=== PATIENT | female | born 1965 | race Caucasian/White ===

== ENCOUNTER → 2019-09-01 | Outpatient (CLI) | payer OTHER ==
[~2019-09-01] MED LIST: CHOL100029 PO; CVS1CAP2 PO; DECA4TAB PO; DIFL150T PO; LIDO2.5C15 TOP; OMEP-218 PO; SIME40TA PO; XARE15TA PO; [UNRECOGNIZED DRUG - CODE] SQ
--- NOTE | 2019-09-04 13:43 | RADONC ---
RADIATION ONCOLOGY CONSULTATION NOTE DATE: 09/01/2019 CHART #: [id number] DIAGNOSIS: Left breast cancer. STAGE: I A, pT1c, pN1a, grade 3, ER positive, IN positive, HER2/evelyn positive. ECOG PERFORMANCE STATUS: 0. CONSULTATION NOTE: Ms. 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 HISTORY OF PRESENT ILLNESS: The patient was in her usual state of health and until routine mammogram was done on 04/04/2019 and revealed a hyperechoic mass in the left breast at the 2:30 position measuring 1.2 cm. On 04/26/2019, the patient underwent lumpectomy and sentinel lymph node biopsy. Pathology revealed a 1.8 cm poorly differentiated invasive ductal carcinoma. 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 The invasive carcinoma extended to within 0.5 mm of the superficial margin and the ductal carcinoma in situ was 1 mm from the superficial margin as well. One sentinel lymph node was sampled and measured 12 mm in greatest dimension. It was involved with metastatic cancer. A second lymph node was sampled, but no lymph node was identified and only adipose tissue was seen. Therefore, one out of one sentinel lymph nodes were positive for malignancy. The tumor was noted to be estrogen receptor positive, progesterone receptor positive and HER2 positive as well. The patient was subsequently seen by medical oncology with Dr. Ayana Prasad and underwent chemotherapy consisting of Taxotere and cyclophosphamide. Her last chemotherapy was just approximately 2 weeks ago. She is scheduled to begin Herceptin. The patient to will be going to [facility] in [place] from through the end of the first week of September and wishes to begin her radiation following that on September 25. PAST MEDICAL HISTORY: The patient's past medical history is positive for a DVT. She had varicose vein surgery and a . ALLERGIES: The patient has NO KNOWN DRUG ALLERGIES. SOCIAL HISTORY: The patient does not smoke cigarettes. She drinks alcohol socially. FAMILY HISTORY: The patient's family history is positive for a sister with breast cancer and a father with lymphoma. REVIEW OF SYSTEMS: The patient's review of systems is positive for some shortness of breath especially when walking up stairs which gives her physical limitations. It is otherwise noncontributory. Denies nausea, vomiting, fevers, chills, night sweats, diplopia, headaches, anxiety or depression, anorexia, weight loss, visual disturbances, chest pain, urinary or bowel difficulties, bone pain, or neurological problems. PHYSICAL EXAMINATION: The patient is a well-developed, well-nourished female in no acute distress. HEENT exam is normocephalic, atraumatic. Extraocular movements are intact. There is no palpable cervical, supraclavicular, infraclavicular, axillary, or inguinal lymphadenopathy present. Lungs are clear to auscultation and percussion. Heart has a regular rate and rhythm. Abdomen is benign with no hepatosplenomegaly, masses, or tenderness. Breast examination reveals no masses or discharge bilaterally. Skeletal examination reveals no tenderness to pressure or percussion of the bony skeleton. Extremities reveal no clubbing, cyanosis, or edema. Neurologic exam is grossly intact, as is the remainder of the physical examination. ASSESSMENT: Clearly, the patient is a candidate for external beam radiation therapy and I have so informed her. I have discussed with the patient in detail the potential benefits as well as possible acute and chronic sequelae of external beam radiation therapy. We discussed logistics of treatment planning, simulation and subsequent fractionated daily radiation treatments. The patient is anxious to start treatment, but apparently has reserved a trip to [place] for the week following . I therefore discussed with her starting on September 25, the Wednesday following her return. It does not make sense to start her on the Wednesday before and give her three treatments followed by two days off that week and the entire next week off. I do not see that this short delay will impact her overall local control rate and I have not recommended that she cancel this vacation for such a short delay. We therefore will be planning on initiating simulation and treatment planning prior to and therefore we should be able to start her without delay when she returns. Thank you for allowing us to participate in the care of this very pleasant woman. cc: MD Amy Fuentes MD Catherine Williams, MD
== END ==
LOC: M ONCR 08:51
PROVIDERS: ATTEND Radiology Radiation Oncology
DX: C50.912 Malignant neoplasm of unspecified site of left female breast (principal); Z92.21 Personal history of antineoplastic chemotherapy; Z86.718 Personal history of other venous thrombosis and embolism

== ENCOUNTER 2019-09-13 12:15 | Outpatient (RCR) | payer OTHER ==
--- NOTE | 2019-09-11 11:20 | RADONC ---
RADIATION ONCOLOGY SIMULATION NOTE DATE OF SERVICE: 09/07/2019 CHART NUMBER: [id number] Ms. Grubbs was taken to the CT scan for CT simulation of her left breast and supraclavicular colbert. CT was accomplished without difficulty or discomfort. Radiation treatment planning is underway and radiation treatments will begin subsequently. An immobilization device was created and will be used throughout the course of treatment. It was created without difficulty or discomfort. I was physically present at the course of CT simulation.
[~2019-09-13 12:15] MED LIST changes: +XARE20TA PO
[2019-09-13] MEDS ORDERED: LETR2.5T2 PO (13:14)
== END 2019-09-16 ==
LOC: M ONCR 12:15
PROVIDERS: ATTEND Radiology Radiation Oncology
DX: C50.412 Malignant neoplasm of upper-outer quadrant of left female breast (principal)

== ENCOUNTER → 2019-10-17 | Outpatient (RCR) | payer OTHER ==
--- NOTE | 2019-09-25 13:56 | RADONC ---
RADIATION ONCOLOGY PROGRESS NOTE DATE: 09/25/2019 CHART NUMBER: [id number] PROGRESS NOTE: Ms. Grubbs was taken to the linear accelerator today and underwent her first fraction of radiation today to her left breast. Radiation was tolerated without difficulty or discomfort. REVIEW OF SYSTEMS: The patient's review of systems is noncontributory. Denies nausea, vomiting, fevers, chills, night sweats, diplopia, headaches, anxiety or depression, anorexia, weight loss, visual disturbances, chest pain, urinary or bowel difficulties, bone pain, or neurological problems. PHYSICAL EXAMINATION: The patient's skin clearly showed no evidence of radiation change present since this was her first fraction. The remainder of her physical exam remained unchanged as well. Ms. Grubbs tolerated treatments quite well and radiation will continue as scheduled.
--- NOTE | 2019-10-04 06:23 | RADONC ---
RADIATION ONCOLOGY PROGRESS NOTE DATE: 10/02/2019 CHART #: [id number] Ms. Grubbs is presently at a dose of 1080 cGy to her left breast and is tolerating treatments quite well at this point with no complaints related to her radiation therapy. She is having no skin or breast pain. She has no bone pain. REVIEW OF SYSTEMS: The patient's review of systems is noncontributory. Denies nausea, vomiting, fevers, chills, night sweats, diplopia, headaches, anxiety or depression, anorexia, weight loss, visual disturbances, chest pain, urinary or bowel difficulties, bone pain, or neurological problems. PHYSICAL EXAMINATION: The patient's skin is in good condition with no evidence of radiation change present. There is no moist or dry desquamation. The remainder of her physical exam remains unchanged. Ms. Grubbs is tolerating treatments quite well and radiation will continue as scheduled.
--- NOTE | 2019-10-13 08:04 | RADONC ---
RADIATION ONCOLOGY PROGRESS NOTE DATE: 10/09/2019 Mrs. Grubbs with a diagnosis of breast cancer is currently receiving local regional radiotherapy and she has achieved a dose thus far of 1800 cGy to the left breast. The treatments thus far have been quite well tolerated as she denies any nausea, vomiting, coughing, sputum production, difficulty breathing or hemoptysis. Her energy level is diminished, but she is still able to maintain most day-to-day activities without any alteration of her lifestyle. She denies skin irritation. EXAMINATION FINDINGS: The skin within the irradiated volume shows neither erythema nor evidence of desquamation. Lymphatics: There is no palpable peripheral lymphadenopathy appreciated. The remainder of the physical examination is unchanged. IMPRESSION: Tolerating radiotherapy well. PLAN: Treatments to continue.
[~2019-10-17] MED LIST changes: +LETR2.5T2 PO
--- NOTE | 2019-10-17 13:33 | RADONC ---
RADIATION ONCOLOGY PROGRESS NOTE DATE OF SERVICE: 10/16/2019 CHART NUMBER: [id number] Mrs. Grubbs, with a diagnosis of carcinoma of the left breast located upper outer quadrant staged [id number], grade 3, HER2/evelyn positive, is currently undergoing local regional radiotherapy, and she has achieved a dose thus far of 2340 cGy of an anticipated 4860 cGy to be followed by a 1200 cGy boost. She is tolerating her radiotherapy well, denying any nausea, vomiting, coughing, sputum production hemoptysis or other skin irritation. Her energy level is diminished but she is still able to maintain most day-to-day activities without any alteration of her lifestyle. Skin irritation is denied. EXAMINATION FINDINGS: The skin within the irradiated volume shows neither erythema nor desquamation. Lymphatics: There is no palpable peripheral lymphadenopathy appreciated. The remainder of the physical examination is unchanged. IMPRESSION: Tolerating therapy well. PLAN: Treatments to continue.
== END ==
LOC: M ONCR 09-25 12:51
PROVIDERS: ATTEND Radiology Radiation Oncology
DX: C50.412 Malignant neoplasm of upper-outer quadrant of left female breast (principal)

== ENCOUNTER 2019-11-14 08:38 | Outpatient (RCR) | payer OTHER ==
--- NOTE | 2019-10-24 07:01 | RADONC ---
RADIATION ONCOLOGY PROGRESS NOTE DATE: 10/23/2019 CHART #: [id number] Ms. Grubbs is presently at a dose of 3060 cGy to her left breast and is tolerating treatments quite well at this point with no complaints related to her radiation therapy. She is having no breast or bone pain. REVIEW OF SYSTEMS: The patient's review of systems is noncontributory. Denies nausea, vomiting, fevers, chills, night sweats, diplopia, headaches, anxiety or depression, anorexia, weight loss, visual disturbances, chest pain, urinary or bowel difficulties, bone pain, or neurological problems. PHYSICAL EXAMINATION: The patient's skin is in good condition with no evidence of radiation change present. There is no moist with no evidence of moist make that or dry desquamation. There is some erythema present. The remainder of physical exam remains unchanged. Ms. Grubbs is tolerating treatments quite well and radiation will continue as scheduled.
--- NOTE | 2019-10-31 08:24 | RADONC ---
RADIATION ONCOLOGY SIMULATION NOTE: DATE: 10/30/2019 CHART NUMBER: [id number] Ms. Grubbs was taken to the linear accelerator today for clinical setup of her electron beam boost field. Setup was accomplished without difficulty or discomfort. Radiation treatment planning is underway and radiation treatments will begin subsequently. An immobilization device was treated without difficulty or discomfort. It will be used throughout the course of treatment. I was physically present throughout the course of clinical setup simulation.
--- NOTE | 2019-10-31 08:47 | RADONC ---
RADIATION ONCOLOGY PROGRESS NOTE: DATE: 10/30/2019 CHART NUMBER: [id number] Ms. Grubbs is presently at a dose of 3960 cGy to her left breast and is tolerating treatments quite well at this point with no difficulties related to her radiation therapy. She is having no significant breast or bone pain. REVIEW OF SYSTEMS: The patient's review of systems is noncontributory. She denies nausea, vomiting, fevers, chills, night sweats, diplopia, headaches, anxiety or depression, anorexia, weight loss, visual disturbances, chest pain, urinary or bowel difficulties, bone pain, or neurological problems. PHYSICAL EXAMINATION: The patient's skin is in excellent condition with no evidence of moist or dry desquamation. There is some radiation tanning present. The remainder of her physical exam remains unchanged. Ms. Grubbs is tolerating treatments quite well and radiation will continue as scheduled.
--- NOTE | 2019-11-06 11:18 | RADONC ---
RADIATION ONCOLOGY PROGRESS NOTE DATE OF SERVICE: 11/06/2019 CHART NUMBER: [id number]. PROGRESS NOTE: Ms. Grubbs is presently at a dose of 4860 cGy to her left breast and is tolerating treatments quite well at this point with no complaints related to her radiation therapy other than some discomfort at the skin. REVIEW OF SYSTEMS: The patient's review of systems is noncontributory. She denies nausea, vomiting, fevers, chills, night sweats, diplopia, headaches, anxiety or depression, anorexia, weight loss, visual disturbances, chest pain, urinary or bowel difficulties, bone pain, or neurological problems. PHYSICAL EXAMINATION: The patient's skin overall is in good condition with erythema and tanning present with no significant desquamation. The remainder of her physical exam remains unchanged. Ms. Grubbs is tolerating treatments quite well, and radiation will continue as scheduled.
--- NOTE | 2019-11-14 15:11 | RADONC ---
RADIATION ONCOLOGY DATE: 11/13/2019 CHART NUMBER: [id number] PROGRESS NOTE: Ms. Grubbs is presently at a dose of 5680 cGy to her left breast primary site and is tolerating treatments quite well at this point with no complaints related to her radiation therapy. She is having no significant breast discomfort or other problems. REVIEW OF SYSTEMS: The patient's review of systems is noncontributory. Denies nausea, vomiting, fevers, chills, night sweats, diplopia, headaches, anxiety or depression, anorexia, weight loss, visual disturbances, chest pain, urinary or bowel difficulties, bone pain, or neurological problems. PHYSICAL EXAMINATION: The patient's skin is in good condition with no evidence of moist or dry desquamation. The remainder of physical exam remains unchanged. Ms. Grubbs is tolerating treatments quite well and radiation is scheduled for completion tomorrow.
--- NOTE | 2019-11-15 11:19 | RADONC ---
RADIATION ONCOLOGY TREATMENT NOTE DATE OF SERVICE: 11/14/2019 CHART NUMBER: [id number] DIAGNOSIS: Left breast cancer. STAGE: Stage I A, [id number] grade 3, ER positive, OK positive, HER2/evelyn positive. ECOG PERFORMANCE STATUS: 0. TREATMENT SUMMARY: Ms. Grubbs is a delightful 54-year-old white female with the diagnosis of what appears to be a stage I A, [id number] poorly differentiated infiltrating ductal carcinoma grade 3 of the left breast, which was ER positive, OK positive and HER2/evelyn positive, who presented to us status post lumpectomy and sentinel lymph node biopsy followed by systemic therapy consisting of Taxotere and cyclophosphamide for consideration of postoperative radiation therapy for conservative breast management. We treated the patient to the left breast for a total dose of 4680 cGy delivered in 27 fractions of 180 cGy each over 42 elapsed days from 09/25/2019 through 11/06/2019. The patient's left breast was treated on the linear accelerator utilizing a 3-D conformal technique with a combination of 10 MV and 15 MV photons. Medial and lateral tangential colbert were utilized. Following completion of 4860 cGy to the entire left breast, the primary site was boosted for an additional 1200 cGy delivered in six fractions of 200 cGy each over seven elapsed days from 11/07/2019 through 11/14/2019. The primary site boost was treated on the linear accelerator utilizing a 16 MEV electron beam prescribed to the 90% isodose line via non phos technique. This brought the primary site to a total dose of 6060 cGy delivered in 33 fractions over 49 elapsed days from 09/25/2019 through 11/14/2019. In addition, we treated the patient's lymph node drainage sites for a dose of 4680 cGy delivered in 26 fractions of 180 cGy each over 39 elapsed days from 09/25/2019 through 11/03/2019. The lymph node drainage sites were treated on the linear accelerator utilizing a 3-D conformal technique with a combination of 6 X and 15 X photons. Ms. Grubbs tolerated her treatments quite well and was able to complete therapy as prescribed. I have scheduled the patient to see me again in 1 month for further followup. She will also continue to be followed by her other physicians as well. cc: MD Flaca Wilson MD
[2019-11-16] MEDS ORDERED: ASCORBIC ACID PO (10:39)
[2019-11-16] MEDS ORDERED: IRON PO (10:39)
== END 2019-11-17 ==
LOC: M ONCR 08:38
PROVIDERS: ATTEND Radiology Radiation Oncology
DX: C50.412 Malignant neoplasm of upper-outer quadrant of left female breast (principal)

== ENCOUNTER → 2019-12-20 | Outpatient (CLI) | payer OTHER ==
[~2019-12-20] MED LIST changes: +ASCORBIC ACID PO; +IRON PO
--- NOTE | 2019-12-22 10:06 | RADONC ---
RADIATION ONCOLOGY FOLLOWUP NOTE DATE: 12/20/2019 CHART #: [id number] DIAGNOSIS: Left breast cancer. STAGE: I A, pT1c, pN1a, M0, grade 3, ER positive, DC positive, HER2/evelyn positive. ECOG PERFORMANCE STATUS: 0. FOLLOWUP NOTE: Ms. Grubbs is a very pleasant 54-year-old white female with the diagnosis of what appears to be a stage I A, pT1c, pN1a, M0, poorly differentiated infiltrating ductal carcinoma of the left breast, grade 3, which is ER positive, DC positive and HER2/evelyn positive, who is presenting to us today for routine followup visit 1 month post completion of external beam radiation therapy. The patient presents today reporting that she is doing quite well with no complaints at this time related to her radiation therapy or disease. She is having no breast or bone pain. REVIEW OF SYSTEMS: The patient's review of systems is noncontributory. Denies nausea, vomiting, fevers, chills, night sweats, diplopia, headaches, anxiety or depression, anorexia, weight loss, visual disturbances, chest pain, urinary or bowel difficulties, bone pain, or neurological problems. PHYSICAL EXAMINATION: The patient is a well-developed, well-nourished female in no acute distress. HEENT exam is normocephalic, atraumatic. Extraocular movements are intact. There is no palpable cervical, supraclavicular, infraclavicular, axillary, or inguinal lymphadenopathy present. Lungs are clear to auscultation and percussion. Heart has a regular rate and rhythm. Abdomen is benign with no hepatosplenomegaly, masses, or tenderness. Breast examination reveals no masses or discharge bilaterally. Skeletal examination reveals no tenderness to pressure or percussion of the bony skeleton. Extremities reveal no clubbing, cyanosis, or edema. Neurologic exam is grossly intact, as is the remainder of the physical examination. ASSESSMENT: The patient is clinically doing quite well at this time. She is continuing with her routine Herceptin. She is under close followup and management by her medical oncologist, Dr. Robles, and I have scheduled for routine followup in our office in six months' time. cc: MD Flaca Wilson MD
== END ==
LOC: M ONCR 08:47
PROVIDERS: ATTEND Radiology Radiation Oncology
DX: C50.412 Malignant neoplasm of upper-outer quadrant of left female breast (principal)

== ENCOUNTER → 2020-08-07 | Outpatient (CLI) | payer OTHER ==
[~2020-08-07] MED LIST changes: +BONI1TAB PO; +CALC600T66 PO; +FERR325T16 PO; +HM V4000 PO; +HYDR50TAB PO; +VITA-158 PO
--- NOTE | 2020-08-07 16:10 | RADONC ---
Radiation Oncology Hx/FUP Radiation Oncology Hx/FUP Date of Service: Aug 07, 2020 Pt Identifier Rani Grubbs is a 55 year old female seen for a followup visit today at the department of radiation oncology for a history of left breast cancer [id number] ER/ND+ HER2+ s/p lumpectomy, SLNB and adjuvant TC chemotherapy and herceptin. She completed adjuvant RT 48.6 Gy in 27 fractions to the left breast, followed by 12 Gy in 6 fractions to the tumor bed, and 46.8 Gy in 26 fractions to the supraclavicular fossa all completed on 11/14/19. She continues on letrozole. Diagnosis/Treatment History Oncologic History As above Interval History Feels well overall. Tolerating letrozole without significant vasomotor symptoms. She had some myalgias on herceptin which have resolved. She has medical oncology follow up and mammograms scheduled for September 2020. Appetite is good weight stable. Current Therapy Letrozole Stage [id number] ER/ND+ HER2+ Grade 3 left breast cancer Social History: Non-smoker Non-drinker Allergies / Meds Allergies: Coded Allergies: No Known Allergies (Unverified , 05/26/19) Home Meds Active Scripts Letrozole (Letrozole) 2.5 Mg Tablet, 2.5 MG PO DAILY for adjuvant therapy for 30 Days, #30 TAB 9 Refills Take 2.5 mg po daily for 10 years Prov:JAMIN HANSON MD 07/18/20 Ibandronate Sodium (Boniva) 150 Mg Tablet, 150 MG PO Q30D for 30 Days, #3 TAB 3 Refills with full glass of water at least 30 mins before first food or drink of day; remain in upright for at least 30 mins Prov:STEFANY WILLOUGHBY MD 03/28/20 Lidocaine/Prilocaine (Lidocaine-Prilocaine Cream) 2.5%/2.5% Cream..g., 1 APLCT T OP ASDIRECTED PRN for prn, #30 GRAM Prov:Ayana Prasad MD 06/08/19 Reported Medications Calcium Carbonate/Vitamin D3 (Calcium 600 + Vit D Tablet) 1 Each Tablet, 1 EACH PO DAILY, TAB 03/28/20 Ascorbic Acid (Vitamin C) 500 Mg Tablet, 1 TAB PO 2XW 01/25/20 Ferrous Gluconate (Ferrous Gluconate) 324 Mg Tablet, 1 TAB PO 2XW for iron 01/25/20 Hydrochlorothiazide (Hydrochlorothiazide) 50 Mg Tablet, 1 TAB PO DAILY PRN for Peripheral Edema TAKE ONE TABLET BY MOUTH EVERY DAY NEEDED FOR PERIPHERAL EDEMA 01/25/20 Cholecalciferol (Vitamin D3) (Vitamin D3) 4,000 Unit Capsule, 1 CAP PO DAILY 01/25/20 Rivaroxaban (Xarelto) 20 Mg Tablet, 20 MG PO DAILY 09/13/19 Simethicone (Simethicone) 80 Mg Tab.chew, 80 MG PO Q6HP for 10 Days, #20 TAB 05/26/19 Omeprazole (Omeprazole) 20 Mg Capsule.dr, 20 MG PO DAILY 05/26/19 Review of Systems Review of Systems Constitutional: Denies: ROS Unabtainable, Chills, Fever, Malaise, Night Sweats, Weakness, Fatigue, Weight Loss, Lethargy, Normal appetite, Other symptoms Eyes: Denies: Pain, Vision change, Conjunctivae inflammation, Eyelid inflammation, Redness, Other HEENT: Denies: Head Aches, Ear Pain, Dysphagia, Sinus Congestion, Post Nasal Drip, Sore Throat, Epistaxis, Other Symptoms Skin: Denies: Rash, Lesions, Jaundice, Bruising, Other Breast: Denies: New Breast Lumps / Masses, Nipple Retraction, Nipple Discharge, Breast Skin Changes, Breast Pain or Tenderness, Other Breast Complaints Pulmonary: Denies: Dyspnea, Cough, Pleuritic Chest Pain, Other Symptoms Cardiovascular: Denies: Chest Pain, Palpitations, Orthopnea, Paroxysmal Noc. Dyspnea, Edema, Lt Headedness, Other Symptoms Gastrointestinal: Denies: Nausea, Vomiting, Abdominal Pain, Diarrhea, Constipation, Melena, Hematochezia, Other Symptoms Genitourinary: Denies: Dysuria, Frequency, Incontinence, Hematuria, Retention, Other Symptoms Hematologic: Denies: Bruising, Bleeding Excessively, Petecchia, Purpura, Enlarged Lymph Nodes, Other Hematologic Endocrine: Denies: Polydipsia, Polyphagia, Polyuria, Heat Intolerance, Cold Intolerance, Other Endocrine Sx Musculoskeletal: Denies: Neck pain, Shoulder pain, Arm pain, Back pain, Hand pain, Leg pain, Foot pain, Joint pain, Muscle pain, Spasms, Gout, Joint sweling, Muscle stiffness, Midthoracic pain, Other Neurological: Denies: Weakness, Numbness, Incoordination, Change in Speech, Confusion, Seizures, Other Symptoms Psych: Denies: Mood Normal, Anxiety, Depression, Memory Issues, Thoughts of Lisa f Harm, Anger, Thoughts of harming Other, Other Psych Physical Examination Vital Signs Wt 219 lbs T 98.2 P 65 RR 18 BP 146/69 O2 98% Pain 0 Fatigue 0 General Exam: Positive: Alert, Cooperative, No Acute Distress Eye Exam: Positive: PERRLA, EOMI ENT EXAM: Positive: Atraumatic, Mucous membr. moist/pink Neck Exam: Positive: Supple; Negative: Lymphadenopathy Chest Exam: Positive: Clear to auscultation, Normal air movement Heart Exam: Positive: Rate Normal, Regular Rhythm Breast Exam: Positive: Symmetric Bilaterally, Other Breast Findings (No axillary or breast masses. No skin sequelae of RT visible); Negative: Lumps or Masses, Nipple Retraction, Nipple Discharge, Skin Changes Abdomen Exam: Positive: Normal bowel sounds, Soft; Negative: Tenderness Extremity Exam: Negative: Edema Skin Exam: Positive: Nl turgor and temperature Neuro Exam: Positive: Normal Gait, Cranial Nerves 3-12 NL Psych Exam: Positive: Mental status NL, Mood NL Diagnostic and Laboratory Diagnostic Review Radiologic images, relevant labs and pathology reports were personally reviewed and discussed with Ms. Grubbs. Assessment and Plan Impression Assessment Ms. Grubbs is a 55 year old female with a history of left breast cancer [id number] ER/ND+ HER2+ s/p lumpectomy, SLNB and adjuvant TC chemotherapy and herceptin. She completed adjuvant RT 48.6 Gy in 27 fractions to the left breast, followed by 12 Gy in 6 fractions to the tumor bed, and 46.8 Gy in 26 fractions to the supraclavicular fossa all completed on 11/14/19. She continues on letrozole. She is doing well overall. She has no evidence of recurrent disease on exam today. She has no post RT sequelae. She is on letrozole and tolerating well. She has appropriate medical oncology and mammographic follow up scheduled, therefore I will see her again in 1 year. Performance Status ECOG 0 Plan Follow up in 1 year Ms. Grubbs was encouraged to call with questions or concerns in the interim period. MELISSA ABREU MD Aug 07, 2020 16:10
== END ==
LOC: M ONCR 14:57
PROVIDERS: ATTEND General Practice
DX: Z85.3 Personal history of malignant neoplasm of breast (principal); Z92.21 Personal history of antineoplastic chemotherapy

== ENCOUNTER → 2021-08-15 | Outpatient (CLI) | payer OTHER ==
[~2021-08-15] MED LIST changes: +FERR324T21 PO; -FERR325T16 PO; +LIDO1CRE42 TOP; -LIDO2.5C15 TOP; -SIME40TA PO; +SIME80CH6 PO
[2021-08-15 11:22] LABS: THYROID STIMULATING HORMONE 1.47 uIU/ML (0.358-3.740)
== END ==
LOC: M ONCR 10:23
PROVIDERS: ATTEND General Practice
DX: C50.412 Malignant neoplasm of upper-outer quadrant of left female breast (principal)

== ENCOUNTER → 2021-08-15 | Outpatient (CLI) | payer OTHER ==
--- NOTE | 2021-08-15 10:26 | RADONC ---
Radiation Oncology Hx/FUP Radiation Oncology Hx/FUP Date of Service: Aug 15, 2021 Pt Identifier Rani Grubbs is a 56 year old female seen for a followup visit today at the department of radiation oncology for a history of left breast cancer [id number] ER/OK+ HER2+ s/p lumpectomy, SLNB and adjuvant TC chemotherapy and herceptin. She completed adjuvant RT 48.6 Gy in 27 fractions to the left breast, followed by 12 Gy in 6 fractions to the tumor bed, and 46.8 Gy in 26 fractions to the supraclavicular fossa all completed on 11/14/19. She has discontinued letrozole as of 2020 due to joint pains. She remains off of endocrine therapy. Diagnosis/Treatment History Oncologic History As above. Test Due Next Last result Notes TSH, T4* 6m post-tx, then q1y 07/202111/14/19 WNL Carotid US* q10 y post-tx 2030 Smoking cessation Assess annually if applicable N/A Screening CT chest q1y if eligible per USPSTF N/A Mammograms Min q1y, if breast conservation 2021 2020 WNL CBC,CMP, Lipids q1y 2 DEXA q2y if on AI 2021 Interval History She feels well. Appetite and energy stable. No skin concerns or swelling in the LUE. She had mammograms summer 2020 which were normal. 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 Current Therapy Surveillance Stage [id number] ER/OK+ HER2+ Grade 3 left breast cancer Social History: Non-smoker Non-drinker Allergies / Meds Allergies: Coded Allergies: No Known Allergies (Unverified , 05/26/19) Home Meds Active Scripts Letrozole (Letrozole) 2.5 Mg Tablet, 2.5 MG PO DAILY for adjuvant therapy for 30 Days, #30 TAB 9 Refills Take 2.5 mg po daily for 10 years Prov:JAMIN HANSON MD FACP 07/18/20 Ibandronate Sodium (Boniva) 150 Mg Tablet, 150 MG PO Q30D for 30 Days, #3 TAB 3 Refills with full glass of water at least 30 mins before first food or drink of day; remain in upright for at least 30 mins Prov:STEFANY WILLOUGHBY MD 03/28/20 Lidocaine/Prilocaine (Lidocaine-Prilocaine Cream) 2.5%/2.5% Cream..g., 1 APLCT TOP ASDIRECTED PRN for prn, #30 GRAM Prov:Ayana Prasad MD 06/08/19 Reported Medications Calcium Carbonate/Vitamin D3 (Calcium 600 + Vit D Tablet) 1 Each Tablet, 1 EACH PO DAILY, TAB 03/28/20 Ascorbic Acid (Vitamin C) 500 Mg Tablet, 1 TAB PO 2XW 01/25/20 Ferrous Gluconate (Ferrous Gluconate) 324 Mg Tablet, 1 TAB PO 2XW for iron 01/25/20 Hydrochlorothiazide (Hydrochlorothiazide) 50 Mg Tablet, 1 TAB PO DAILY PRN for Peripheral Edema TAKE ONE TABLET BY MOUTH EVERY DAY NEEDED FOR PERIPHERAL EDEMA 01/25/20 Cholecalciferol (Vitamin D3) (Vitamin D3) 4,000 Unit Capsule, 1 CAP PO DAILY 01/25/20 Rivaroxaban (Xarelto) 20 Mg Tablet, 20 MG PO DAILY 09/13/19 Simethicone (Simethicone) 80 Mg Tab.chew, 80 MG PO Q6HP for 10 Days, #20 TAB 05/26/19 Omeprazole (Omeprazole) 20 Mg Capsule.dr, 20 MG PO DAILY 05/26/19 Review of Systems Review of Systems Constitutional: Denies: Fatigue, Weight Loss Eyes: Denies: Pain HEENT: Denies: Head Aches Skin: Denies: Rash Breast: Denies: New Breast Lumps / Masses, Breast Skin Changes, Breast Pain or Tenderness Pulmonary: Denies: Dyspnea Cardiovascular: Denies: Chest Pain Gastrointestinal: Denies: Abdominal Pain Endocrine: Denies: Cold Intolerance Musculoskeletal: Denies: Neck pain, Joint pain, Joint sweling Neurological: Denies: Weakness, Numbness Psych: Reports: Mood Normal Physical Examination Vital Signs Wt 230 lbs T 96.6 P 63 RR 17 BP 143/98 O2 99% Pain 0 Fatigue 0 General Exam: Alert, Cooperative, No Acute Distress Eye Exam: PERRLA, EOMI ENT EXAM: Atraumatic Neck Exam: Supple; Negative: Lymphadenopathy Chest Exam: Clear to auscultation Heart Exam: Rate Normal Breast Exam: Symmetric Bilaterally; Negative: Lumps or Masses (BL breast texture homogenous, no fibrosis or palpable lesions. ), Nipple Retraction, Nipple Discharge, Skin Changes Abdomen Exam: Soft Extremity Exam: Negative: Edema Skin Exam: Nl turgor and temperature Neuro Exam: Normal Gait, Normal Speech, Cranial Nerves 3-12 NL Psych Exam: Mental status NL Diagnostic and Laboratory Diagnostic Review Radiologic images, relevant labs and pathology reports were personally reviewed and discussed with Ms. Grubbs. Assessment and Plan Impression Assessment Ms. Grubbs is a 56 year old female with a history of left breast cancer [id number] ER/OK+ HER2+ s/p lumpectomy, SLNB and adjuvant TC chemotherapy and herceptin. She completed adjuvant RT 48.6 Gy in 27 fractions to the left breast, followed by 12 Gy in 6 fractions to the tumor bed, and 46.8 Gy in 26 fractions to the supraclavicular fossa all completed on 11/14/19. She has discontinued letrozole as of 2020 due to joint pains. She remains off of endocrine therapy. She is doing well. Joint pain resolved with d/c AI. She is not on endocrine therapy. She has SCOTT on exam today. She is due for TFTs today due to supraclavicular RT. I will see her back in 1 year. She has mammographic follow up in place. Performance Status ECOG 0 Plan TSH/T4 today Follow up in 1 year Ms. Grubbs was encouraged to call with questions or concerns in the interim period. Billing Statement Total time of [22] minutes was spent preparing for the visit [1], obtaining HPI [4], examining the patient [3], reviewing diagnostic tests [2], discussing management options [4], coordinating care [2], and writing this note [6]. MELISSA ABREU MD Aug 15, 2021 10:26
== END ==
LOC: M ONCR 09:43
PROVIDERS: ATTEND General Practice
DX: C50.412 Malignant neoplasm of upper-outer quadrant of left female breast (principal); Z79.899 Other long term (current) drug therapy; Z92.21 Personal history of antineoplastic chemotherapy; Z92.3 Personal history of irradiation

== ENCOUNTER → 2022-06-17 | Outpatient (CLI) | payer OTHER ==
[~2022-06-17] MED LIST changes: +OMEP-173 PO; -OMEP-218 PO; +PROHANCE 279.3MG/ML 15ML VIAL ONE; +PROHANCE 279.3MG/ML 5ML VIAL ONE
== END ==
LOC: M PLAIMG 12:40
PROVIDERS: ATTEND Family Medicine
DX: C50.912 Malignant neoplasm of unspecified site of left female breast (principal)
CPT/HCPCS: A9576; C8908